=== PATIENT | female | born 1965 | race African-American/Black ===

== ENCOUNTER 2022-05-30 16:23 | Emergency (ER) | payer BC ==
[~2022-05-30] VITALS: Ht 160 cm; Wt 68.0 kg
[~2022-05-30 16:23] MED LIST: INSLIS SUBCUT; INSU100V36 SQ
[2022-05-30 22:11] LABS: BASOPHILS % 0.8 % (0.0-2.0); EOSINOPHILS % 2.5 % (0.0-5.0); HEMATOCRIT. 42.5 % (36.0-48.0); HEMOGLOBIN. 13.9 g/dL (12.0-16.0); MEAN CORPUSCULAR HEMOGLOBIN 28.7 pg (28.0-32.0); MEAN CORPUSCULAR VOLUME 87.6 fL (81.0-99.0); MEAN PLATELET VOLUME 7.8 fl (7.4-10.4); MONOCYTES % 4.8 % (2.0-8.0); NEUTROPHILS % 53.9 % (40.0-76.0); PLATELET 290 x1000/uL (130-400); RED BLOOD CELL COUNT 4.86 mill/uL (4.2-5.4); RED CELL DISTRIBUTION WIDTH 13.9 % (11.6-14.6)
[2022-05-30 22:19] LABS: CHLORIDE 104 mEq/L (98-107)
[2022-05-30 22:20] VITALS: BP 106/60
[2022-05-30] MEDS ORDERED: GABA300C MT (23:05)
[2022-05-30] MEDS ORDERED: ASPI-986 MT (23:05)
== END 2022-05-30 23:30 | disposition home or self-care (01) ==
LOC: ER 16:23
DX: E11.40 Type 2 diabetes mellitus with diabetic neuropathy, unspecified (principal); I10 Essential (primary) hypertension; Z79.4 Long term (current) use of insulin
CPT/HCPCS: 36415; 80053; 85025; 93005; 99285